=== PATIENT | male | born 1960 | race African-American/Black ===

== ENCOUNTER 2017-09-09 09:54 | Emergency (ER) | payer SELFPAY ==
[2017-09-09 10:02] VITALS: BP 125/77; BMI 29.7
--- NOTE | 2017-09-09 10:50 | DR.GENAD ---
HPI - PCP Primary Care Physician: DONAVAN LANG - HPI Comment HPI Comment: HISTORY ARTHRITIS. NO TRAUMA. CONCERN IF HE HAS GOUT. NO FEVER. - Complaint/Symptoms Chief Complaint Doctors Comments: PAIN RIGHT KNEE AND WRIST TIMES 2 DAYS. Chief Complaint:: PT C/O RIGHT WRIST PAIN AND RIGHT KNEE PAIN PT C/O THAT HE HAS BEEN TRYING TO WORK AND HE THINKS HE MAY HAVE GOUT . Self Treatment fo Chief Complaint: EDEMA REDNESS AND A KNOT NOTED TO PTS RIGHT WRISTS, AND RIGHT KNEE EDEMA ,, ,PT IS USING A WALKER AND APPEARS TO BE IN PAIN. - Nurses notes reviewed Nurses Notes Review: Yes - Source History Provided: Patient - Mode of Arrival Mode of Arrival: Ambulatory - Timing Onset of Chief Complaint: 09/07/17 Came on: Suddenly - Duration Duration: Constant Duration: Minutes - Severity Severity: Moderate PMH - PMH Past Medical History: Yes Past Medical History: Alzheimers, Arthritis, GERD, Gout Past Surgical History: No - Family History History of Family Medical Conditions: Yes Family Medical History: Diabetes Mellitus, Cancer, [place], Coronary Artery Disease, Heart Failure, Hypertension - Social History Does patient currently use any type of tobacco product: Yes Have you used tobacco products in the last 12 months: Yes Type of Tobacco Use: Cigarettes How many years tobacco product used: 25 Does any household member use tobacco: No Alcohol Use: None Do you use any recreational Drugs:: No Lives With: Family Lives Where: Home - infectious screening In the last 2 months have you had wt loss of >10#?: NO Have you had fever, night sweats or hemotysis?: No Have you traveled outside the country in the last 6 months?: No Isolation: Standard ROS - Review of Systems Constitutional: No Symptoms Reported Eyes: No Symptoms Reported ENTM: No Symptoms Reported Respiratoy: No Symptoms Reported Cardiovascular: No Symptoms Reported Gastrointestinal/Abdominal: No Symptoms Reported Genitourinary: No Symptoms Reported Neurological: No Symptoms Reported Musculoskeletal: Right (RT), Wrist (RT), Knee Integumentary: Change in Color, Other (SWELLING AND TENDERNESS RT WRIST AND KNEE.) Hematologic/Lymphatic: No Symptoms Reported Endocrine: No Symptoms Reported All Other Systems: Reviewed and Negative PE - Vital Signs Vitals: Temperature 97.2 F Pulse Rate 88 Respiratory Rate 18 Blood Pressure [Left Arm] 133/71 Blood Pressure 125/77 O2 Sat by Pulse Oximetry 97 - General Limitations: No Limitations General Appearance: Alert - Head Head Exam: Normal Inspection - Eyes Eye exam: Normal Appearance - ENT ENT Exam: Normal External Ear Exam External Ear Exam: Normal External Inspection TM/Canal Exam: Bilateral Normal Mouth Exam: Normal Inspection Throat Exam: Normal Inspection - Neck Neck Exam: Trachea Midline - Chest Chest Inspection: Symmetric Chest Wall Rise - Respiratory Respiratory Exam: Normal Lung Sounds Bilat Respiratory Exam: Bilateral Clear to Auscultation - Cardiovascular Cardiovascular Exam: Regular Rate, Normal Rhythm, Normal Heart Sounds - Abdominal Exam Abdominal Exam: Normal Inspection - Extremities Extremities Exam: Tenderness (RT WRIST SWOLLEN AND TENDER. RT KNEE SWOLLEN AND TENDER.) - Back Back Exam: Normal Inspection - Neurologic Neurological Exam: Alert, Oriented X3 - Psychiatric Psychiatric Exam: Normal Affect, Normal Mood - Skin Skin Exam: Erythema MDM - Differential Diagnosis Differential Diagnosis: ARTHRITIS, GOUT, TENDINITIS, BURSITIS Course - Treatment Treatment: SEE ORDERS. - Education/Counseling Education/Counseling: Patient, Education Educated On: Treatment, Diagnosis, Needs for Follow Up ROR - Labs Reviewed Laboratory: Uric Acid 6.2 mg/dL (3.5-7.2) 09/09/17 11:10 - XRAY XRAY Interpreted by: Radiologist XRAY Findings: REPORT DISCUSS WITH PATIENT. - Diagnosis Discharge Problem: Arthritis Knee pain, acute Qualifiers: Laterality: right Qualified Code(s): M25.561 - Pain in right knee Wrist pain, acute Qualifiers: Laterality: right Qualified Code(s): M25.531 - Pain in right wrist - Discharge Plan Condition: Stable Prescriptions: Acetaminophen with Codeine [Tylenol/Codeine #3 300-30 mg] 1 tab PO Q8H PRN #15 tab PRN Reason: Pain Ibuprofen [MOTRIN TAB 800 MG *] 800 mg PO Q8H PRN #30 tab PRN Reason: Pain/Inflammation - Follow ups/Referrals Follow ups/Referrals: NFD,None [Primary Care Provider] - 3 days - Instructions Instructions: Smoking Cessation, Tips for Success, [id number], Osteoarthritis , Joint Pain, [id number] Additional Instructions: RETURN TO ED IF WORSE.
--- NOTE | 2017-09-09 11:20 | RAD ---
Examination: Right wrist, three views History: Pain and swelling Findings: No acute fracture or dislocation or pathologic calcification identified. There is soft tiss ue swelling adjacent to the ulnar styloid without evidence for erosion. There is narrowing of the rad iocarpal joint. The intracarpal joints are preserved. Impression: Radiocarpal joint narrowing may be seen with osteoarthritis as well as pyrophosphate arth ropathy/pseudogout. There is soft tissue swelling over the ulnar styloid. Negative otherwise. Reported By:
--- NOTE | 2017-09-09 11:22 | RAD ---
Examination: Right knee, three views History: Right knee pain Comparison reference 02/07/2014 Findings: Degenerative narrowing of patellar-femoral, lateral and medial compartments. Small osteophy cris are present. No fracture is identified. There is nonacute fragmentation at the inferior pole of t he patella. No synovial effusion identified. Impression: Tricompartmental osteoarthritis with evidence for radiographic progression since 02/08/20 14. Reported By:
== END 2017-09-09 12:06 ==
LOC: ER 10:11
DX: M19.90 Unspecified osteoarthritis, unspecified site (principal); M25.561 Pain in right knee; M25.531 Pain in right wrist; M17.9 Osteoarthritis of knee, unspecified
CPT/HCPCS: 36415; 73100; 73560; 84550; 99282

== ENCOUNTER 2017-09-12 10:31 | Emergency (ER) | payer SELFPAY ==
[2017-09-12 10:41] VITALS: BP 130/82; BMI 29.7
[2017-09-12] MEDS ORDERED: DECADRON INJ IM ONE (10:56)
--- NOTE | 2017-09-12 10:56 | DR.EXTPAIN ---
HPI - Time seen Time seen: 10:51 - PCP Primary Care Physician: Mary Ortiz - Complaint/Symptoms Chief Complaint Doctor Comments: patient was seen in the ED on three days ago for arthritis pain of the right wrist. He was given Rx for pain to include tyelnol#3 and ibuprofen. Chief Complaint:: Right wrist started hurting last wednesday, was seen in ER last wednesday and pain has gotten worse Self Treatment fo Chief Complaint: Taken Motrin and Tylenol #3 without relief - Source History Provided: Patient - Mode of arrival Mode of Arrival: Ambulatory - Timing Onset of Chief Complaint: 09/06/17 PMH - PMH Past Medical History: Yes Past Medical History: Arthritis, GERD, Gout Past Surgical History: No - Family History History of Family Medical Conditions: Yes Family Medical History: Diabetes Mellitus, Cancer, [place], Hypertension - Social History Does patient currently use any type of tobacco product: Yes Have you used tobacco products in the last 12 months: Yes Type of Tobacco Use: Cigarettes Does any household member use tobacco: No Alcohol Use: None Do you use any recreational Drugs:: No Lives With: Significant Other Lives Where: Home - infectious screening Have you traveled outside the country in the last 6 months?: No ROS - Review of Systems Constitutional: Diaphoresis ENTM: No Symptoms Reported Respiratoy: No Symptoms Reported Cardiovascular: No Symptoms Reported Gastrointestinal/Abdominal: No Symptoms Reported Genitourinary: No Symptoms Reported Neurological: No Symptoms Reported Musculoskeletal: Joint Pain (right wrist) Integumentary: No Symptoms Reported Hematologic/Lymphatic: No Symptoms Reported Endocrine: No Symptoms Reported Psychiatric: No Symptoms Reported All Other Systems: Reviewed and Negative PE - Vital Signs Vitals: Temperature 97.4 F Pulse Rate 75 Respiratory Rate 20 Blood Pressure [Left Arm] 133/71 Blood Pressure 130/82 O2 Sat by Pulse Oximetry 95 - General Limitations: No Limitations General Appearance: Alert, In No Apparent Distress - Head Head Exam: Normal Inspection, Atraumatic - Eyes Eye exam: Normal Appearance, PERRL, EOMI - ENT ENT Exam: Normal Exam - Neck Neck Exam: Normal Inspection, Full ROM - Chest Chest Inspection: Normal Inspection - Respiratory Respiratory Exam: Normal Lung Sounds Bilat Respiratory Exam: Bilateral Clear to Auscultation - Cardiovascular Cardiovascular Exam: Regular Rate, Normal Rhythm - Abdominal Exam Abdominal Exam: Normal Inspection, Normal Bowel Sounds Abdominal Tenderness: negative: RUQ, RLQ, LUQ, LLQ, Epigastrium, Suprapubic, Diffuse, Mild, Moderate, Severe, Other - Extremities Extremities Exam: Joint Swelling (right wrist) - Upper Extremities Shoulder Exam: Normal Inspection Arm Exam: Normal Inspection Elbow Exam: Normal Inspection Forearm Exam: Normal Inspection Hand Exam: Normal Inspection Neuromotor Exam: Normal Exam Neurosensory Exam: Normal Exam Hand Tendon Exam: Flexor Digitorium Profundus (Location) Upper Ext. Vascular Exam: Capillary Refill - Lower Extremities Hip/Pelvis Exam: Normal Inspection Upper Leg Exam: Normal Inspection Knee Exam: Normal Inspection Lower Leg Exam: Normal Inspection Ankle Exam: Normal Inspection Foot/Toe Exam: Normal Inspection Neurovascular/Tendon Exam: Normal Capillary Refill Gait Exam: Observed and Normal - Back Back Exam: Normal Inspection - Neurological Neurological Exam: Alert, Oriented X3, CN II-XII Intact - Psychiatric Psychiatric Exam: Normal Affect, Normal Mood - Skin Skin Exam: Warm, Dry Course - Education/Counseling Education/Counseling: Patient Educated On: Treatment, Diagnosis, Prognosis, Needs for Follow Up - Diagnosis Discharge Problem: Arthritis - Discharge Plan Condition: Stable - Follow ups/Referrals Follow ups/Referrals: NOHEMI ORTIZ [Primary Care Provider] - 3 days - Instructions
[2017-09-12] MEDS ORDERED: DECADRON INJ ONE (10:59)
== END 2017-09-12 11:06 | disposition home or self-care (01) ==
LOC: ER 10:43
DX: M25.531 Pain in right wrist (principal)
CPT/HCPCS: 29260; 99281; 99282; 99283; J1100

== ENCOUNTER 2018-03-04 11:31 | Observation (INO) ==
[2018-03-04] MEDS ORDERED: NS 1000 ML 1,000 ML IV ONE (11:39)
[2018-03-04] MEDS ORDERED: ASPIRIN 81 MG CHEWTAB PO ONE (11:40)
--- NOTE | 2018-03-04 11:40 | DR.CP ---
HPI - Time Seen Time seen: 11:30 - HPI Comment HPI Comment: CHEST PAIN, PRECORDIAL PRESSURE THAT STATED AT WORK WHILE COMING FROM THE BATHROOM. STARTED BEFORE COMING. GETTING WORSE. PAIN ASSOCIATED WITH DIZZINESS, DIAPHORESIS AND SOB. DENIES FEVER OR URI SYMTOMS. - Complaint Chief Complaint Doctor Comments: CHEST PAIN, DIZZINESS. - Reviewed Nurses Notes Review: Yes - Source History Provided: Patient - Mode of Arrival Mode of Arrival: Stretcher - Timing Came on: Suddenly Pain: Present Now - Duration Duration: Constant Duration: Hours - Location Location of Chest Pain: Left, Chest Chest Pain Radiation Location: None - Context Onset: With light exertion Cardiac Risk Factors: Family History PE Risk Factors: None History of: None Prehospital Care: None - Quality Quality: Sharp, Heavy - Severity Severity: Moderate - Modifying Factors Worsens: Nothing Impoves: Nothing - Associated Signs and Symptoms Associated Signs and Symptoms: Shortness of Breath, Diaphoresis PMH - PMH Past Medical History: Arthritis, GERD, Gout Past Surgical History: No - Family History Family Medical History: Diabetes Mellitus, Cancer, [place], Hypertension - Social History Do you use any recreational Drugs:: No ROS - Review of Systems Constitutional: Diaphoresis, Weakness, Fatigue Eyes: No Symptoms Reported ENTM: No Symptoms Reported. negative: Ear Pain, Nose Discharge, Nose Congestion , Throat Pain Respiratoy: Short of Breath. negative: Productive Cough, Non-Productive Cough, Wheezing, Hemoptysis Cardiovascular: Chest Pain Gastrointestinal/Abdominal: No Symptoms Reported Genitourinary: No Symptoms Reported Neurological: Weakness, Dizziness Musculoskeletal: No Symptoms Reported Integumentary: No Symptoms Reported Hematologic/Lymphatic: No Symptoms Reported Endocrine: No Symptoms Reported All Other Systems: Reviewed and Negative PE - General Limitations: No Limitations General Appearance: Alert - Head Head Exam: Normal Inspection - Eyes Eye exam: Normal Appearance - ENT ENT Exam: Normal External Ear Exam - Chest Chest Inspection: Symmetric Chest Wall Rise - Respiratory Respiratory Exam: Normal Lung Sounds Bilat Respiratory Exam: Bilateral Clear to Auscultation - Cardiovascular Cardiovascular Exam: Regular Rate, Normal Rhythm, Normal Heart Sounds Pulse: Normal, Radial, Femoral Edema: Normal - Abdominal Exam Abdominal Exam: Normal Bowel Sounds, Soft. negative: Tenderness - Extremities Extremities Exam: Normal Inspection - Back Back Exam: Normal Inspection - Neurologic Neurological Exam: Alert, Oriented X3, CN II-XII Intact, Motor Sensory Deficit. negative: Reflexes Normal - Psychiatric Psychiatric Exam: Anxious - Skin Skin Exam: Normal Color - Vitals Vitals: Temperature 98.7 F Pulse Rate 72 Respiratory Rate 16 Blood Pressure [Left Arm] 133/71 Blood Pressure 136/74 O2 Sat by Pulse Oximetry 100 MDM - Additional Information Additional Information Obtained From: Family - Differential Diagnosis Differential Diagnosis: Angina, Cholelithasis, CHF, Costochondritis, Esophageal Reflux/Spasm, Gastritis, Myocardial Infarction, Pericarditis, Pleuritis, Pancreatitis, Pneumonia, Pneumothorax, Pulmonary Embolus Course - Treatment Treatment: SEE ORDERS. ASA, NTG AND MORPHOIN AND ZOFRAIN IN ED. - Reevaluation 1st: Improved - Consultation Consultation Comments: DISCUSS PATIENT WITH DR. CARBONE. HE WILL ADMIT PATIENT. - Education/Counseling Education/Counseling: Patient, Family, Education Educated On: Diagnosis ROR - Labs Reviewed Laboratory Results Reviewed?: Yes Result Diagrams: 03/04/18 11:30 03/04/18 11:30 - XRAY XRAY Interpreted by: Radiologist XRAY Findings: REPORT DISCUSS WITH PATIENT. - EKG Rhythm: NSR (EKG NOTED.) - Labs Reviewed Laboratory: WBC 7.5 X10^3/uL (3.6-10.0) 03/04/18 11:30 RBC 4.48 X10^6/uL (4.7-6.0) L 03/04/18 11:30 Hgb 14.3 g/dL (13.5-18.0) 03/04/18 11:30 Hct 41.9 % (42.0-54.0) L 03/04/18 11:30 MCV 93.4 fL (80.0-100.0) 03/04/18 11:30 MCH 31.9 pg (27.0-34.0) 03/04/18 11:30 MCHC 34.1 g/dL (33.0-35.0) 03/04/18 11:30 RDW 14.7 % (11.6-16.5) 03/04/18 11:30 Plt Count 242 X10^3/uL (150.0-450.0) 03/04/18 11:30 MPV 8.5 fL (7.4-11.0) 03/04/18 11:30 Neut % (Auto) 48.3 % (42.0-75.0) 03/04/18 11:30 Lymph % (Auto) 40.2 % (21.0-51.0) 03/04/18 11:30 Story % (Auto) 6.8 % (0.0-13.0) 03/04/18 11:30 Eos % (Auto) 3.8 % (0.9-2.9) H 03/04/18 11:30 Baso % (Auto) 0.9 % (0.2-1.0) 03/04/18 11:30 Neut # (Auto) 3.6 x10^3/uL (2.2-4.8) 03/04/18 11:30 Lymph # (Auto) 3.0 X10^3/uL (1.3-2.9) H 03/04/18 11:30 Story # (Auto) 0.5 x10^3/uL (0.3-0.8) 03/04/18 11:30 Eos # (Auto) 0.3 x10^3/uL (0.0-0.2) H 03/04/18 11:30 Baso # (Auto) 0.1 X10^3/uL (0.0-0.1) 03/04/18 11:30 Absolute Nucleated RBC 0.1 /100WBC 03/04/18 11:30 INR Target Range - 03/04/18 11:30 INR 0.89 (0.8-1.3) 03/04/18 11:30 APTT 28.2 SECONDS (22.9-36.5) 03/04/18 11:30 PTT Comment - 03/04/18 11:30 Sodium 141 mmol/L (136-145) 03/04/18 11:30 Corrected Sodium TNP 03/04/18 11:30 Potassium 4.2 mmol/L (3.5-5.1) 03/04/18 11:30 Chloride 106 mmol/L (98-107) 03/04/18 11:30 Carbon Dioxide 27.3 mmol/L (21-32) 03/04/18 11:30 BUN 13 mg/dL (7-18) 03/04/18 11:30 Creatinine 1.43 mg/dL (0.70-1.30) H 03/04/18 11:30 Est GFR (MDRD) Af Amer > 60 (>60) 03/04/18 11:30 Est GFR (MDRD) Non-Af 55 (>60) L 03/04/18 11:30 Glucose 81 mg/dL (65-99) 03/04/18 11:30 Calcium 8.7 mg/dL (8.5-10.1) 03/04/18 11:30 Corrected Calcium TNP 03/04/18 11:30 Magnesium 2.1 mg/dL (1.7-2.9) 03/04/18 11:30 Total Bilirubin 0.20 mg/dL (0.2-1.0) 03/04/18 11:30 AST 20 Units/L (15-37) 03/04/18 11:30 ALT 28 Units/L (12-78) 03/04/18 11:30 Alkaline Phosphatase 93 Units/L (46-116) 03/04/18 11:30 Creatine Kinase 475 Units/L (39-308) H 03/04/18 11:30 CK-MB (CK-2) 1.2 ng/mL (0-4.0) 03/04/18 11:30 CK/CKMB % Calc 0.3 % (<4) 03/04/18 11:30 Troponin I < 0.02 ng/mL (0-1.5) 03/04/18 11:30 Total Protein 7.6 g/dL (6.4-8.2) 03/04/18 11:30 Albumin 3.8 g/dL (3.4-5.0) 03/04/18 11:30 Globulin 3.8 g/dL (2.5-4.5) 03/04/18 11:30 Albumin/Globulin Ratio 1.0 Ratio (1.1-2.1) L 03/04/18 11:30 - Diagnosis Discharge Problem: Dizziness Chest pain Qualifiers: Chest pain type: precordial pain Qualified Code(s): R07.2 - Precordial pain - Discharge Plan Disposition: ADMITTED INPATIENT Condition: Stable
[2018-03-04] MEDS ORDERED: ASPIRIN 81 MG CHEWTAB ONE (11:43)
[2018-03-04 11:50] LABS: BASOPHILS # (AUTO) 0.1 X10^3/uL (0.0-0.1); BASOPHILS % (AUTO) 0.9 % (0.2-1.0); EOSINOPHILS # (AUTO) 0.3 x10^3/uL (0.0-0.2); EOSINOPHILS % (AUTO) 3.8 % (0.9-2.9); HEMATOCRIT 41.9 % (42.0-54.0); HEMOGLOBIN 14.3 g/dL (13.5-18.0); LYMPHOCYTES % (AUTO) 40.2 % (21.0-51.0); MEAN CORPUSCULAR HEMOGLOBIN 31.9 pg (27.0-34.0); MEAN CORPUSCULAR HGB CONC 34.1 g/dL (33.0-35.0); MEAN CORPUSCULAR VOLUME 93.4 fL (80.0-100.0); MEAN PLATELET VOLUME 8.5 fL (7.4-11.0); MONOCYTES # (AUTO) 0.5 x10^3/uL (0.3-0.8); MONOCYTES % (AUTO) 6.8 % (0.0-13.0); NEUTROPHILS # (AUTO) 3.6 x10^3/uL (2.2-4.8); NEUTROPHILS % (AUTO) 48.3 % (42.0-75.0); PLATELET COUNT 242 X10^3/uL (150.0-450.0); RED BLOOD COUNT 4.48 X10^6/uL (4.7-6.0); RED CELL DISTRIBUTION WIDTH 14.7 % (11.6-16.5); WHITE BLOOD COUNT 7.5 X10^3/uL (3.6-10.0)
[2018-03-04] MEDS ORDERED: NS 1000 ML 1,000 ML ONE (11:57)
[2018-03-04 11:59] LABS: ALANINE AMINOTRANSFERASE 28 Units/L (12-78); ALBUMIN 3.8 g/dL (3.4-5.0); ALKALINE PHOSPHATASE 93 Units/L (46-116); ASPARTATE AMINO TRANSFERASE 20 Units/L (15-37); BLOOD UREA NITROGEN 13 mg/dL (7-18); CALCIUM 8.7 mg/dL (8.5-10.1); CARBON DIOXIDE 27.3 mmol/L (21-32); CHLORIDE 106 mmol/L (98-107); CREATININE 1.43 mg/dL (0.70-1.30); MAGNESIUM 2.1 mg/dL (1.7-2.9); SODIUM 141 mmol/L (136-145); TOTAL PROTEIN 7.6 g/dL (6.4-8.2); eGFR NON BLACK RACES 55 (>60)
[2018-03-04] MEDS ORDERED: ZOFRAN INJ 4 MG VIAL IVP ONE (12:02)
[2018-03-04] MEDS ORDERED: MORPHINE SULFATE INJ 4 MG IVP ONE (12:02)
--- NOTE | 2018-03-04 12:06 | RAD ---
Examination: Portable AP chest History: Chest pain and dizzy Comparison reference 01/16/2014 Findings: Continued normal heart size with clear lungs and pleural spaces. Impression: No interval change or acute findings. Reported By:
[2018-03-04] MEDS ORDERED: MORPHINE SULFATE INJ 4 MG ONE (12:08)
[2018-03-04] MEDS ORDERED: ZOFRAN INJ 4 MG VIAL ONE (12:08)
[2018-03-04 12:12] LABS: CKMB % 0.3 % (<4); CREATINE KINASE 475 Units/L (39-308); CREATINE KINASE MB 1.2 ng/mL (0-4.0); TROPONIN I < 0.02 ng/mL (0-1.5)
--- NOTE | 2018-03-04 12:13 | CT ---
CT brain without contrast Indication: Headache with blurry vision Comparison: None available Technique: Multiple axial images of the brain were obtained from the skull base to the vertex without administra tion of IV contrast. Findings: No acute intraparenchymal hemorrhage or mass can be identified. No extra-axial fluid collections are seen. No alteration in the attenuation of the brain parenchyma can be identified to suggest acute o r subacute ischemic change. The ventricular system is symmetric and nondilated. The extracranial st ructures are grossly unremarkable. IMPRESSION: 1. No acute intracranial process is identified. Reported By:
[2018-03-04] MEDS ORDERED: NITROSTAT SL PRN (12:46)
[2018-03-04] MEDS ORDERED: NITROSTAT SL ONE (12:47)
[2018-03-04 15:57] LABS: CKMB % 0.3 % (<4); CREATINE KINASE 385 Units/L (39-308); TROPONIN I < 0.02 ng/mL (0-1.5)
[2018-03-04 18:02] VITALS: BMI 29.2
[2018-03-04] MEDS: NS 1000 ML 1,000 ML IV SCH ×2 (18:07→21:50)
[2018-03-04 21:23] LABS: CKMB % 0.3 % (<4); CREATINE KINASE 331 Units/L (39-308); CREATINE KINASE MB < 1.0 ng/mL (0-4.0); TROPONIN I < 0.02 ng/mL (0-1.5)
[2018-03-04] MEDS ORDERED: AMBIEN PO PRN (21:53)
[2018-03-05 06:55] LABS: BASOPHILS # (AUTO) 0.1 X10^3/uL (0.0-0.1); BASOPHILS % (AUTO) 1.1 % (0.2-1.0); EOSINOPHILS # (AUTO) 0.3 x10^3/uL (0.0-0.2); EOSINOPHILS % (AUTO) 4.7 % (0.9-2.9); HEMATOCRIT 39.4 % (42.0-54.0); HEMOGLOBIN 13.7 g/dL (13.5-18.0); LYMPHOCYTES # (AUTO) 2.5 X10^3/uL (1.3-2.9); LYMPHOCYTES % (AUTO) 40.1 % (21.0-51.0); MEAN CORPUSCULAR HEMOGLOBIN 32.3 pg (27.0-34.0); MEAN CORPUSCULAR HGB CONC 34.9 g/dL (33.0-35.0); MEAN CORPUSCULAR VOLUME 92.5 fL (80.0-100.0); MEAN PLATELET VOLUME 8.8 fL (7.4-11.0); MONOCYTES # (AUTO) 0.5 x10^3/uL (0.3-0.8); MONOCYTES % (AUTO) 7.7 % (0.0-13.0); NEUTROPHILS # (AUTO) 2.9 x10^3/uL (2.2-4.8); NEUTROPHILS % (AUTO) 46.4 % (42.0-75.0); PLATELET COUNT 223 X10^3/uL (150.0-450.0); RED BLOOD COUNT 4.25 X10^6/uL (4.7-6.0); WHITE BLOOD COUNT 6.2 X10^3/uL (3.6-10.0)
[2018-03-05 07:20] LABS: ALANINE AMINOTRANSFERASE 24 Units/L (12-78); ALBUMIN 2.9 g/dL (3.4-5.0); ALKALINE PHOSPHATASE 76 Units/L (46-116); ASPARTATE AMINO TRANSFERASE 17 Units/L (15-37); BLOOD UREA NITROGEN 10 mg/dL (7-18); CARBON DIOXIDE 24.1 mmol/L (21-32); CHLORIDE 110 mmol/L (98-107); CHOL/HDL RATIO 4.8 (0.0-5.0); CHOLESTEROL 162 mg/dL (0-200); COR CA(FOR HYPOALB) 8.9 mg/dL (8.5-10.1); CREATININE 1.19 mg/dL (0.70-1.30); HDL CHOLESTEROL 34 mg/dL (40-60); SODIUM 142 mmol/L (136-145); TOTAL PROTEIN 6.4 g/dL (6.4-8.2); TRIGLYCERIDES 213 mg/dL (0-150); eGFR NON BLACK RACES > 60 (>60)
[2018-03-05] MEDS: NS 1000 ML 1,000 ML IV SCH (07:35)
[2018-03-05] MEDS ORDERED: LEVSIN/MAALOX/LIDOC VISC PO ONE (08:59)
[2018-03-05] MEDS ORDERED: PROTONIX INJ 40 MG VIAL IVP ONE (08:59)
[2018-03-05 12:54] VITALS: BP 121/56
--- NOTE | 2018-03-13 08:13 | DR.H&P ---
H&P - History & Physical for Day of: H&P Date: 03/04/18 - Chief Complaint Chief Complaint: CHEST PAIN - History of Present Illness History of Present Illness: CHEST PAIN, PRECORDIAL PRESSURE THAT STATED AT WORK WHILE COMING FROM THE BATHROOM. STARTED BEFORE COMING. GETTING WORSE. PAIN ASSOCIATED WITH DIZZINESS, DIAPHORESIS AND SOB. DENIES FEVER OR URI SYMTOMS. - Past Medical History Past Medical History: Arthritis, GERD, Gout - Family History Family Medical History: Diabetes Mellitus, Cancer, [place], Hypertension - Social History Does patient currently use any type of tobacco product: Yes Have you used tobacco products in the last 12 months: Yes Type of Tobacco Use: Cigarettes How many years tobacco product used: 20 Does any household member use tobacco: No Alcohol Use: Rarely Drug Use: None - Medications Home Medications: meloxicam [From [employer]] Allergy (Verified 09/09/17 09:57) bee venom protein (honey bee) Adverse Reaction (Verified 09/09/17 09:57) STERIODS Allergy (Uncoded 09/09/17 09:57) New Prescriptions ranitidine HCl [[facility] 150] 150 mg PO DAILY #30 tab 03/05/18 [Rx] - Review of Systems Constitutional: Malaise Eyes: No Symptoms Reported ENT: No Symptoms Reported Respiratory: Shortness of Breath, SOB with Excertion Cardiovascular: Chest Pain Gastrointestinal: No Symptoms Reported Genitourinary: No Symptoms Reported Musculoskeletal: No Symptoms Reported Skin: No Symptoms Reported Neurological: No Symptoms Reported - Physical Exam Vital Signs: Temperature 98.1 F Pulse Rate [Left Brachial] 55 Pulse Rate 72 Respiratory Rate 17 Blood Pressure [Left Arm] 121/56 Blood Pressure 136/74 O2 Sat by Pulse Oximetry 97 Oriented: Normal Eyes: Normal Ear: Normal Nose: Normal Throat: Normal Respiratory: Clear Throughout Cardiovascular: Normal : Normal Auscultation: Bowel Sounds: Normal Palpation: Normal Tenderness: Normal Skin: Normal Musculoskeletal: Normal Psychiatric: Normal Mood Description: Calm Affect: Normal Speech Pattern: Clear - Assessment/Plan (1) Chest pain Qualifiers: Chest pain type: precordial pain Qualified Code(s): R07.2 - Precordial pain Status: Acute Plan: CARDIAC MONITORING, LABS, EKG - Allergies Allergies/Adverse Reactions: Allergies Allergy/AdvReac Type Severity Reaction Status Date / Time meloxicam [From Mobic] Allergy Verified 09/09/17 09:57 bee venom protein (honey bee) AdvReac Verified 09/09/17 09:57 STERIODS Allergy Uncoded 09/09/17 09:57
== END 2018-03-05 13:36 | disposition home or self-care (01) ==
LOC: OBS 12:00 → ER 12:00 → OBS 17:47
PROVIDERS: ADMIT Internal Medicine; ATTEND Internal Medicine
DX: H53.8 Other visual disturbances; R42 Dizziness and giddiness; Z82.49 Family history of ischemic heart disease and other diseases of the circulatory system; G44.89 Other headache syndrome; M62.82 Rhabdomyolysis; E86.0 Dehydration; R07.89 Other chest pain; F17.200 Nicotine dependence, unspecified, uncomplicated; K21.9 Gastro-esophageal reflux disease without esophagitis
CPT/HCPCS: 36415; 70450; 71010; 71045; 80053; 80061; 82550; 82553; 83735; 84484; 85025; 85378; 85610; 85730; 86677; 93005; 93010; 94760; 96365; 96374; 96375; 99284; A4222; C9113; G0378; J2270; J2405; J7030